=== PATIENT | female | born 1945 | race Caucasian/White ===

== ENCOUNTER → 2016-06-18 | Outpatient (CLI) | payer MEDICARE, BC | LOC: ZCOL.LAB 23:10 | DX: H60.8X3 Other otitis externa, bilateral (principal); B36.8 Other specified superficial mycoses ==

== ENCOUNTER → 2016-06-18 | Outpatient (CLI) | payer MEDICARE, BC | LOC: ZCOL.LAB 17:11 | DX: B36.8 Other specified superficial mycoses (principal) ==

== ENCOUNTER 2019-04-19 07:43 | Day surgery (SDC) | payer MEDICARE, BC ==
[~2019-04-19] VITALS: Ht 162.6 cm; Wt 168.0 kg
[2019-04-19 08:27] LABS: HEMOGLOBIN 14.9 g/dl (12.5-16.0); MEAN CELL VOLUME 98 fl (80.0-100.0); MEAN CORPUSCULAR HEMOGLOBIN 30 pg (27.0-31.0); MEAN CORPUSCULAR HGB CONC 31 g/dl (33.0-37.0); MEAN PLATELET VOLUME 11.2 fl (7.4-10.4); PLATELET COUNT 195 K/mm3 (130-400); RED BLOOD COUNT 4.91 M/mm3 (4.10-5.30); REDCELL DISTRIBUTION WIDTH-CV 17.2 % (11.5-14.5)
[2019-04-19] MEDS ORDERED: COLACE 100100 MG/CAP PO (08:28)
[2019-04-19 08:32] LABS: INR 1.2 (0.8-3.0); PROTHROMBIN TIME 13.9 SECONDS (9.7-12.8)
[2019-04-19] MEDS ORDERED: CHOLESTOFF PO (08:33)
[2019-04-19] MEDS ORDERED: LOPRESSOR 225 MG/TAB PO (08:33)
[2019-04-19] MEDS ORDERED: PROZAC 20MG20 MG PO (08:34)
[2019-04-19 08:35] LABS: PARTIAL THROMBOPLASTIN TIME 36.1 SECONDS (26.0-37.0)
[2019-04-19] MEDS ORDERED: ASPI325T6 PO (08:35)
[2019-04-19] MEDS ORDERED: MULTI VITAMINS1 TAB PO (08:35)
[2019-04-19 08:36] LABS: CALCIUM 9.6 mg/dL (8.4-10.2); CREATININE, serum 0.76 (0.52-1.25); MAGNESIUM 2.1 mg/dL (1.6-2.3); POTASSIUM 4.5 mmol/L (3.4-5.0)
[2019-04-19] MEDS ORDERED: LASIX 40MG TABL40 MG PO (08:36)
[2019-04-19] MEDS ORDERED: PROBIOTIC FORMU1 CAP PO (08:36)
[2019-04-19] MEDS ORDERED: TALTZ AUTO80 MG/1 ML SQ (08:41)
[2019-04-19] MEDS ORDERED: NORCO 325 MG-101 TAB PO (08:43)
[2019-04-19] MEDS ORDERED: KLONOPIN 0.5MG0.5 MG PO (08:44)
[2019-04-19] MEDS ORDERED: NOVOLOG 100U100 U/M1 SQ ×2 (08:45→08:47)
[2019-04-19] MEDS ORDERED: NOVOLOG 100U100 U/M1 PO (08:46)
[2019-04-19 08:50] VITALS: BP 133/78; PULSE 73; TEMP 97.8
[2019-04-19 09:07] LABS: THYROID STIMULATING HORMONE 2.41 uIU/mL (0.465-4.680)
[2019-04-19] MEDS ORDERED: LANTUS100 U/ML SQ ×2 (09:18)
[2019-04-19] MEDS ORDERED: FARXIGA10 PO (09:19)
[2019-04-19] MEDS ORDERED: ELIQUIS 5MG PO (09:20)
[2019-04-19] MEDS ORDERED: ALDACTONE 25MG25 M1 PO (09:20)
[2019-04-19] MEDS ORDERED: PACERONE400 MG PO (11:01)
[2019-04-19 11:10] VITALS: BP 134/81; PULSE 50
--- NOTE | 2019-04-19 11:10 | NUR ---
GLADYS/CV complete and report received from Aftab LANIER from lab technologist. Pt resting well in bed, family at bedside.
[2019-04-19 11:25] VITALS: BP 146/83; PULSE 55
[2019-04-19 11:40] VITALS: BP 142/64; PULSE 61
[2019-04-19 11:55] VITALS: BP 142/70; PULSE 57; TEMP 97.5
[2019-04-19 12:10] VITALS: BP 164/76; PULSE 58
--- NOTE | 2019-04-19 12:15 | NUR ---
Pt has ambulated, voided and benjamín PO intake s n/v. PIV removed from L FA with catheter intact.
--- NOTE | 2019-04-19 12:40 | NUR ---
Pt discharged per w/c by nurse with and granddaughter.
== END 2019-04-19 14:24 | disposition home or self-care (01) ==
LOC: COL.CAR 07:43
PROVIDERS: Internal Medicine Cardiovascular Disease
DX: I48.0 Paroxysmal atrial fibrillation (principal); I08.3 Combined rheumatic disorders of mitral, aortic and tricuspid valves; E78.5 Hyperlipidemia, unspecified; G47.33 Obstructive sleep apnea (adult) (pediatric); I50.9 Heart failure, unspecified; I11.0 Hypertensive heart disease with heart failure; Z79.4 Long term (current) use of insulin; Z90.49 Acquired absence of other specified parts of digestive tract; Z88.2 Allergy status to sulfonamides; Z88.8 Allergy status to other drugs, medicaments and biological substances; Z79.01 Long term (current) use of anticoagulants; Z79.82 Long term (current) use of aspirin; Z79.51 Long term (current) use of inhaled steroids; Z87.891 Personal history of nicotine dependence; Z82.3 Family history of stroke; Z88.1 Allergy status to other antibiotic agents; Z90.710 Acquired absence of both cervix and uterus; E66.01 Morbid (severe) obesity due to excess calories; Z68.45 Body mass index [BMI] 70 or greater, adult; Z82.49 Family history of ischemic heart disease and other diseases of the circulatory system
CPT/HCPCS: J0282; J2704; J7060